=== PATIENT | female | born 1980 | race Caucasian/White ===

== ENCOUNTER 2017-04-11 21:59 | Emergency (ER) | payer OTHER ==
[2017-04-12 02:47] LABS: HEMOGLOBIN 11.9 gm/dl (12.3-15.3); RED BLOOD COUNT 3.92 M/UL (4.00-5.10); WHITE BLOOD COUNT 8.8 K/UL (4.5-11.0)
[2017-04-12 03:07] LABS: BUN/CREATININE RATIO 18 (0-10)
== END 2017-04-12 07:57 | disposition home or self-care (01) ==
LOC: ER1 21:59
PROVIDERS: Physician Assistant
DX: R55 Syncope and collapse (principal); S46.911A Strain of unspecified muscle, fascia and tendon at shoulder and upper arm level, right arm, initial encounter; F41.9 Anxiety disorder, unspecified; F43.10 Post-traumatic stress disorder, unspecified; F17.210 Nicotine dependence, cigarettes, uncomplicated; Z88.0 Allergy status to penicillin; Z91.041 Radiographic dye allergy status; Z88.5 Allergy status to narcotic agent; Z98.51 Tubal ligation status; Z91.040 Latex allergy status; X58.XXXA Exposure to other specified factors, initial encounter; Z79.899 Other long term (current) drug therapy
CPT/HCPCS: 36415; 71010; 80053; 80307; 81001; 82550; 82553; 82962; 83874; 84484; 84703; 85025; 87086; 93005; 96361; 96374; 96375; 99285; J2270; J2405